=== PATIENT | female | born 1945 | race Caucasian/White ===

== ENCOUNTER 2018-06-16 15:15 | Outpatient (RCR) | payer MEDICARE, OTHER, SELFPAY ==
--- NOTE | 2018-05-04 17:23 | PT.OIE ---
Current Diagnoses Benign paroxysmal vertigo, unspecified ear (05/04/18) Benign paroxysmal vertigo, right ear (05/04/18) Dizziness and giddiness (05/04/18) Provider Visit Care Team Role Provider Type Marizol Deutsch PA-C Attending Provider Physician Primary Care Provider Specialty: Internal Medicine Address: [address] [place] [address], [id number] Email: Physical Therapy Initial Evaluation PT-OP-A Visit Information Start: 05/04/18 16:59 Freq: Status: Active Protocol: Document 05/04/18 12:15 DCW (Rec: 05/04/18 17:23 DCW [id number]) Out-Patient Physical Therapy Visit Information Visit Information Visit Type Initial Evaluation Visit Note Pt arrived 15 minutes late Visit Start Time 12:15 Visit Stop Time 12:45 Total Visit Minutes 30 Visit Number 1 Number of TECHNICAL ASSISTANT Visits 0 Evaluation Information Evaluation Date 05/04/18 PT-OP-B Current Condition Start: 05/04/18 16:59 Freq: Status: Active Protocol: Document 05/04/18 12:15 DCW (Rec: 05/04/18 17:23 DCW [id number]) Current Condition History of Current Condition Onset Date s/p one week Current Complaints Sudden onset of position- dependent vertigo History of Current Condition Pt is a 73 year old female complaining of a one week history of motion-induced vertigo. Pt reports that she came down with a bad head cold two weeks ago, was finally getting over it, and then one week ago, she woke up with the room spinning. This happened each of the next three nights, and then since that time, she has not had bad vertiginous symptoms, however she just has a constant feeling of nausea . Pt notes that she had a similar experience about five years ago, and was seen at [facility] in [place], [place], where she underwent what sounds like a canalith repositioning maneuver, and has not had any issues since that time. Pt reports episodes last a couple of seconds. Pt denies recent hearing changes, tinnitus, diplopia, dysarthria, discoordination, or decreased mentation/ consciousness. Pt reports symptoms are waxing/waning in nature. Pt denies hx of HTN, hyperlipidemia, diabetes, arrhythmia, head trauma, migraines, back/neck problems, CVA, anxiety/panic disorders, depression, or excessive smoking or drinking. Pt did note a history of seizure, however has not had one since 1984. 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 If pt has continued symptoms, changes in her symptoms, or any other indication of something other than BPPV, a new assessment will be performed. Treatment Goals Patient/Caregiver Goals To stop feeling so nauseated. PT-OP-C Subjective Start: 05/04/18 16:59 Freq: Status: Active Protocol: Document 05/04/18 12:15 DCW (Rec: 05/04/18 17:23 DCW [id number]) Patient Questionnaires Dizziness Handicap Inventory DHI Score 8% DHI Functional Impairment 1 to 19% Impaired (Score 1-19) PT-OP-O Vestibular Start: 05/04/18 16:59 Freq: Status: Active Protocol: Document 05/04/18 12:15 DCW (Rec: 05/04/18 17:23 DCW [id number]) Vestibular Assessment Screening Tests Vestibular Artery Screen Negative Sharp-Nelly Test Negative Auditory Tests Gay Test Negative Rinne Test Negative Air Conduction Results Equal Visual Testing Smooth Pursuits Horizontal Negative Smooth Pursuits Vertical Negative Saccades Horizontal Negative Heave Test Negative Thrust Head Negative Positional Testing [place]-Hallpike Positive Right Negative Left Upbeating < 60 Seconds Comments Vestibular Comments Initial round of positional testing was entirely negative. Augustina-Hallpike was then performed a second time with the frenzel lenses, and pt reported a brief episode of vertigo. Therapist was able to see one single beat of what may have been upbeating nystagmus. PT-OP-Q Treatments Start: 05/04/18 16:59 Freq: Status: Active Protocol: Document 05/04/18 12:15 DCW (Rec: 05/04/18 17:23 DCW [id number]) Canalithic Repositioning BPPV Treatment Lisa Affected Canal(s) R Posterior Reps x1 PT-OP-T Assessment and Plan Start: 05/04/18 16:59 Freq: Status: Active Protocol: Document 05/04/18 12:15 DCW (Rec: 05/04/18 17:23 DCW [id number]) Physical Therapy Assessment Rehab Potential Rehabilitation Potential Good Evaluation Complexity Number of Personal Factors/Comorbidities 1-2 Number of Body Systems Impaired 1-2 Clinical Presentation at Evaluation Unstable Impairments Impairments Balance Vestibular Goals Three Impairment Complaint of vertigo with right Augustina-Hallpike Short Term Goal (STG) Pt to have negative augustina- hallpike test bilaterally Two Impairment 8% disability on Dizziness Handicap Inventory Short Term Goal (STG) Pt to score 0% disability on DHI STG Duration 05/18/18 One Impairment Pt experiences vertigo and nausea with position changes Short Term Goal (STG) Pt to report no symptoms of nausea or vertigo over a one week period STG Duration 05/18/18 Assessment Summary Assessment Pt's initial round of positional testing was entirely negative. Plains- Hallpike was then performed a second time with the frenzel lenses, and pt reported a brief episode of vertigo. Therapist was able to see one single beat of what may have been upbeating nystagmus. As this was her only notable symptom, and pt had had a previous occurrence of BPPV which was successfully treated , an Lisa maneuver was performed. Due to time constraints, and the minimal amount of initial symptoms, further positional testing was not performed. Pt did report feeling much better following the maneuver. Pt was educated on BPPV, expectations for treatment, possible recurrence (BPPV has a ~50% recurrence rate in the five years following treatment), and post -Lisa restrictions. Pt to return in ~1 week for a follow -up appointment, and intermittently afterward as indicated for treatment of BPPV. Physical Therapy Plan Frequency and Duration Frequency of Treatment 1x/Week Duration of Treatment 6 weeks Plan of Care Start Date 05/04/18 Plan of Care End Date 06/15/18 Therapeutic Interventions Therapeutic Interventions Balance Training Canalithic Repositioning Manual Therapy Neuromuscular Re-education Vestibular Rehabilitation Next Visit Focus/Plan Next Note Type Treatment Note Next Visit Plan Continued vestibular and positional testing, CRM and vestibular rehabilitation as indicated.
--- NOTE | 2018-05-04 17:25 | PT.OPPOC ---
Current Diagnoses Benign paroxysmal vertigo, unspecified ear (05/04/18) Benign paroxysmal vertigo, right ear (05/04/18) Dizziness and giddiness (05/04/18) Provider Visit Care Team Role Provider Type Marizol Deutsch PA-C Attending Provider Physician Primary Care Provider Specialty: Internal Medicine Address: [address] [place] [address], [id number] Email: Plan Of Care PT-OP-T Assessment and Plan Start: 05/04/18 16:59 Freq: Status: Active Protocol: Document 05/04/18 12:15 DCW (Rec: 05/04/18 17:23 DCW [id number]) Physical Therapy Assessment Rehab Potential Rehabilitation Potential Good Evaluation Complexity Number of Personal Factors/Comorbidities 1-2 Number of Body Systems Impaired 1-2 Clinical Presentation at Evaluation Unstable Impairments Impairments Balance Vestibular Goals Three Impairment Complaint of vertigo with right Brendan-Hallpike Short Term Goal (STG) Pt to have negative brendan- hallpike test bilaterally Two Impairment 8% disability on Dizziness Handicap Inventory Short Term Goal (STG) Pt to score 0% disability on DHI STG Duration 05/18/18 One Impairment Pt experiences vertigo and nausea with position changes Short Term Goal (STG) Pt to report no symptoms of nausea or vertigo over a one week period STG Duration 05/18/18 Assessment Summary Assessment Pt's initial round of positional testing was entirely negative. Brendan- Hallpike was then performed a second time with the Frenzel lenses, and pt reported a brief episode of vertigo. Therapist was able to see one single beat of what may have been upbeating nystagmus. As this was her only notable symptom, and pt had had a previous occurrence of BPPV which was successfully treated , an Lisa maneuver was performed. Due to time constraints, and the minimal amount of initial symptoms, further positional testing was not performed. Pt did report feeling much better following the maneuver. Pt was educated on BPPV, expectations for treatment, possible recurrence (BPPV has a ~50% recurrence rate in the five years following treatment), and post -Lisa restrictions. Pt to return in ~1 week for a follow -up appointment, and intermittently afterward as indicated for treatment of BPPV. Physical Therapy Plan Frequency and Duration Frequency of Treatment 1x/Week Duration of Treatment 6 weeks Plan of Care Start Date 05/04/18 Plan of Care End Date 06/15/18 Therapeutic Interventions Therapeutic Interventions Balance Training Canalithic Repositioning Manual Therapy Neuromuscular Re-education Vestibular Rehabilitation Next Visit Focus/Plan Next Note Type Treatment Note Next Visit Plan Continued vestibular and positional testing, CRM and vestibular rehabilitation as indicated. Plan of Care Dates Plan of Care Start Date 05/04/18 Plan of Care End Date 06/15/18 Please Sign and Return: I have reviewed this Plan of Care and certify that the skilled therapy services above are required to meet the patient?s needs. Physician Signature Date Printed Name and Credentials Clinical Instructor Signature Printed Name and Credentials
--- NOTE | 2018-06-16 15:50 | PT.OTN ---
Current Diagnoses Benign paroxysmal vertigo, right ear (06/16/18) Physical Therapy Treatment Note PT-OP-A Visit Information Start: 05/04/18 16:59 Freq: Status: Active Protocol: Document 06/16/18 15:15 DCW (Rec: 06/16/18 15:50 DCW [id number]) Out-Patient Physical Therapy Visit Information Visit Information Visit Type Progress Note Visit Start Time 15:15 Visit Stop Time 15:42 Total Visit Minutes 27 Visit Number 2 Number of JIG BORING MACHINE OPERATOR FOR METAL Visits 0 Evaluation Information Evaluation Date 05/04/18 PT-OP-B Current Condition Start: 05/04/18 16:59 Freq: Status: Active Protocol: Document 05/04/18 12:15 DCW (Rec: 05/04/18 17:23 DCW [id number]) Current Condition History of Current Condition Onset Date s/p one week Current Complaints Sudden onset of position- dependent vertigo History of Current Condition Pt is a 73 year old female complaining of a one week history of motion-induced vertigo. Pt reports that she came down with a bad head cold two weeks ago, was finally getting over it, and then one week ago, she woke up with the room spinning. This happened each of the next three nights, and then since that time, she has not had bad vertiginous symptoms, however she just has a constant feeling of nausea . Pt notes that she had a similar experience about five years ago, and was seen at [facility] in [place], where she underwent what sounds like a canalith repositioning maneuver, and has not had any issues since that time. Pt reports episodes last a couple of seconds. Pt denies recent hearing changes, tinnitus, diplopia, dysarthria, discoordination, or decreased mentation/ consciousness. Pt reports symptoms are waxing/waning in nature. Pt denies hx of HTN, hyperlipidemia, diabetes, arrhythmia, head trauma, migraines, back/neck problems, CVA, anxiety/panic disorders, depression, or excessive smoking or drinking. Pt did note a history of seizure, however has not had one since 1984. 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 If pt has continued symptoms, changes in her symptoms, or any other indication of something other than BPPV, a new assessment will be performed. Treatment Goals Patient/Caregiver Goals To stop feeling so nauseated. PT-OP-C Subjective Start: 05/04/18 16:59 Freq: Status: Active Protocol: Document 06/16/18 15:15 DCW (Rec: 06/16/18 15:50 DCW [id number]) OP-PT Subjective Patient Comments Patient Comments Pt reports that she felt great immediately upon completion of her previous Lisa maneuver on 05/04/18, however she began to have symptoms again 4 days ago. Pt notes they are not nearly as bad as they used to be, but she also doesn't want to stop doing the things I like to do because I get dizzy . She is also planning a vacation next month, and she is worried that her dizziness will impact her enjoyment. PT-OP-O Vestibular Start: 05/04/18 16:59 Freq: Status: Active Protocol: Document 06/16/18 15:15 DCW (Rec: 06/16/18 15:50 DCW [id number]) Vestibular Assessment Positional Testing [place]-Hallpike Negative Left Negative Right PT-OP-Q Treatments Start: 05/04/18 16:59 Freq: Status: Active Protocol: Document 06/16/18 15:15 DCW (Rec: 06/16/18 15:50 DCW [id number]) Canalithic Repositioning BPPV Treatment Lisa Affected Canal(s) R Posterior Reps x1 PT-OP-T Assessment and Plan Start: 05/04/18 16:59 Freq: Status: Active Protocol: Document 06/16/18 15:15 DCW (Rec: 06/16/18 15:50 DCW [id number]) Physical Therapy Assessment Impairments Impairments Balance Vestibular Goals Three Impairment Complaint of vertigo with right Brendan-Hallpike Short Term Goal (STG) Pt to have negative brendan- hallpike test bilaterally STG Duration 07/16/18 Two Impairment 8% disability on Dizziness Handicap Inventory Short Term Goal (STG) Pt to score 0% disability on DHI STG Duration 07/16/18 One Impairment Pt experiences vertigo and nausea with position changes Short Term Goal (STG) Pt to report no symptoms of nausea or vertigo over a one week period STG Duration 07/16/18 Assessment Summary Assessment Pt's positional testing was negative, however her last assessment was also largely negative with very minimal response to positional testing . Due to pt reporting similar symptoms, a right-sided Lisa was again performed. Pt was again educated on BPPV, expectations for treatment, possible recurrence (BPPV has a ~50% recurrence rate in the five years following treatment ), and post-Lisa restrictions . Pt instructed to return as necessary for continued treatment of BPPV Physical Therapy Plan Frequency and Duration Frequency of Treatment 1x/Week Duration of Treatment 6 weeks Plan of Care Start Date 06/16/18 Plan of Care End Date 07/28/18 Therapeutic Interventions Therapeutic Interventions Balance Training Canalithic Repositioning Manual Therapy Neuromuscular Re-education Vestibular Rehabilitation Next Visit Focus/Plan Next Note Type Treatment Note Next Visit Plan Continued vestibular and positional testing, CRM and vestibular rehabilitation as indicated.
--- NOTE | 2018-06-16 15:51 | PT.OPPOC ---
Current Diagnoses Benign paroxysmal vertigo, right ear (06/16/18) Provider Visit Care Team Role Provider Type Marizol Deutsch PA-C Attending Provider Physician Primary Care Provider Specialty: Internal Medicine Address: [address] [place] [address], [id number] Email: Plan Of Care PT-OP-T Assessment and Plan Start: 05/04/18 16:59 Freq: Status: Active Protocol: Document 06/16/18 15:15 DCW (Rec: 06/16/18 15:50 DCW [id number]) Physical Therapy Assessment Impairments Impairments Balance Vestibular Goals Three Impairment Complaint of vertigo with right Brendan-Hallpike Short Term Goal (STG) Pt to have negative brendan- hallpike test bilaterally STG Duration 07/16/18 Two Impairment 8% disability on Dizziness Handicap Inventory Short Term Goal (STG) Pt to score 0% disability on DHI STG Duration 07/16/18 One Impairment Pt experiences vertigo and nausea with position changes Short Term Goal (STG) Pt to report no symptoms of nausea or vertigo over a one week period STG Duration 07/16/18 Assessment Summary Assessment Pt's positional testing was negative, however her last assessment was also largely negative with very minimal response to positional testing . Due to pt reporting similar symptoms, a right-sided Lisa was again performed. Pt was again educated on BPPV, expectations for treatment, possible recurrence (BPPV has a ~50% recurrence rate in the five years following treatment ), and post-Lisa restrictions . Pt instructed to return as necessary for continued treatment of BPPV Physical Therapy Plan Frequency and Duration Frequency of Treatment 1x/Week Duration of Treatment 6 weeks Plan of Care Start Date 06/16/18 Plan of Care End Date 07/28/18 Therapeutic Interventions Therapeutic Interventions Balance Training Canalithic Repositioning Manual Therapy Neuromuscular Re-education Vestibular Rehabilitation Next Visit Focus/Plan Next Note Type Treatment Note Next Visit Plan Continued vestibular and positional testing, CRM and vestibular rehabilitation as indicated. Plan of Care Dates Plan of Care Start Date 06/16/18 Plan of Care End Date 07/28/18 Please Sign and Return: I have reviewed this Plan of Care and certify that the skilled therapy services above are required to meet the patient?s needs. Physician Signature Date Printed Name and Credentials Clinical Instructor Signature Printed Name and Credentials
--- NOTE | 2018-09-05 11:34 | PT.OPDS ---
Current Diagnoses Benign paroxysmal vertigo, right ear (06/16/18) Provider Visit Care Team Role Provider Type Marizol Deutsch PA-C Attending Provider Physician Primary Care Provider Specialty: Internal Medicine Address: [address] [place] [address], [id number] Email: Visit Number Visit Number 2 Discharge Summary PT-OP-B Current Condition Start: 05/04/18 16:59 Freq: Status: Active Protocol: Document 05/04/18 12:15 DCW (Rec: 05/04/18 17:23 DCW [id number]) Current Condition History of Current Condition Onset Date s/p one week Current Complaints Sudden onset of position- dependent vertigo History of Current Condition Pt is a 73 year old female complaining of a one week history of motion-induced vertigo. Pt reports that she came down with a bad head cold two weeks ago, was finally getting over it, and then one week ago, she woke up with the room spinning. This happened each of the next three nights, and then since that time, she has not had bad vertiginous symptoms, however she just has a constant feeling of nausea . Pt notes that she had a similar experience about five years ago, and was seen at [facility] in [place], where she underwent what sounds like a canalith repositioning maneuver, and has not had any issues since that time. Pt reports episodes last a couple of seconds. Pt denies recent hearing changes, tinnitus, diplopia, dysarthria, discoordination, or decreased mentation/ consciousness. Pt reports symptoms are waxing/waning in nature. Pt denies hx of HTN, hyperlipidemia, diabetes, arrhythmia, head trauma, migraines, back/neck problems, CVA, anxiety/panic disorders, depression, or excessive smoking or drinking. Pt did note a history of seizure, however has not had one since 1984. 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 If pt has continued symptoms, changes in her symptoms, or any other indication of something other than BPPV, a new assessment will be performed. Treatment Goals Patient/Caregiver Goals To stop feeling so nauseated. PT-OP-C Subjective Start: 05/04/18 16:59 Freq: Status: Active Protocol: Document 06/16/18 15:15 DCW (Rec: 06/16/18 15:50 DCW [id number]) OP-PT Subjective Patient Comments Patient Comments Pt reports that she felt great immediately upon completion of her previous Lisa maneuver on 05/04/18, however she began to have symptoms again 4 days ago. Pt notes they are not nearly as bad as they used to be, but she also doesn't want to stop doing the things I like to do because I get dizzy . She is also planning a vacation next month, and she is worried that her dizziness will impact her enjoyment. PT-OP-O Vestibular Start: 05/04/18 16:59 Freq: Status: Active Protocol: Document 06/16/18 15:15 DCW (Rec: 06/16/18 15:50 DCW [id number]) Vestibular Assessment Positional Testing [place]-Hallpike Negative Left Negative Right PT-OP-T Assessment and Plan Start: 05/04/18 16:59 Freq: Status: Active Protocol: Document 09/05/18 11:32 DCW (Rec: 09/05/18 11:34 DCW [id number]) Physical Therapy Assessment Impairments Impairments Balance Vestibular Goals Three Impairment Complaint of vertigo with right Brendan-Hallpike Short Term Goal (STG) Pt to have negative brendan- hallpike test bilaterally STG Duration 07/16/18 Two Impairment 8% disability on Dizziness Handicap Inventory Short Term Goal (STG) Pt to score 0% disability on DHI STG Duration 07/16/18 One Impairment Pt experiences vertigo and nausea with position changes Short Term Goal (STG) Pt to report no symptoms of nausea or vertigo over a one week period STG Duration 07/16/18 Assessment Summary Assessment Pt was phoned on 07/22/18 and a message was left with her regarding her current level of function and need to return to skilled therapy for vestibular treatment. No further contact has been made, and pt has now not been seen in more than two months. Pt will be discharged from skilled therapy at this time. Physical Therapy Plan Frequency and Duration Frequency of Treatment 1x/Week Duration of Treatment 6 weeks Plan of Care Start Date 06/16/18 Plan of Care End Date 07/28/18 Therapeutic Interventions Therapeutic Interventions Balance Training Canalithic Repositioning Manual Therapy Neuromuscular Re-education Vestibular Rehabilitation Next Visit Focus/Plan Next Note Type Treatment Note Next Visit Plan Continued vestibular and positional testing, CRM and vestibular rehabilitation as indicated.
== END 2018-09-06 13:13 ==
LOC: PHYS 15:15
PROVIDERS: PCP Physician Assistant; Visit Provider Physician Assistant
DX: H81.11 Benign paroxysmal vertigo, right ear (principal)
CPT/HCPCS: 95992; 97140; 97161

== ENCOUNTER → 2018-11-22 09:59 | Outpatient (CLI) | payer MEDICARE, OTHER, SELFPAY ==
--- NOTE | 2018-11-22 | DI.US.S_ITS ---
PROCEDURE: US PERIPH VENOUS LOW EXTREM LT INDICATIONS: R/O DVT, LEFT ANKLE PAIN TECHNIQUE: Real-time imaging, as well as color and pulse Doppler interrogation, were performed of the lower extremity deep veins from the inguinal ligament to the popliteal fossa. COMPARISON: None. FINDINGS: The common femoral, femoral and popliteal veins are normally compressible, and free of intraluminal thrombus. Color and pulse Doppler demonstrate normal phasic intraluminal flow. There is normal augmentation response to distal compression maneuver. Edema within the left lower leg medially. IMPRESSION: 1. No deep venous thrombosis identified within the left lower extremity. Dictated by: Car EMERY Interpreted: Sybil Woodruff MD on 11/22/2018 at 13:02 Approved by: Sybil Woodruff M.D. on 11/22/2018 at 13:22
--- NOTE | 2018-11-22 | DI.RAD.S_ITS ---
PROCEDURE: XR FOOT LT MIN 3V INDICATIONS: possible dvt left ankle TECHNIQUE: 3 views of the foot were acquired. COMPARISON: [facility], CR, XR ANKLE LT MIN 3V, 11/22/2018, 10:08. FINDINGS: Bones: No fractures or dislocations. No suspicious bony lesions. Hammertoe deformity of the second and third digits. Soft tissues: No tibiotalar joint effusion. Achilles tendon appears normal. IMPRESSION: 1. No fracture or dislocation. 2. Hammertoe deformity of the second and third digits. Dictated by: Kera Huston M.D. on 11/22/2018 at 18:16 Approved by: Kera Huston M.D. on 11/22/2018 at 18:56
--- NOTE | 2018-11-22 | DI.RAD.S_ITS ---
PROCEDURE: XR ANKLE LT MIN 3V INDICATIONS: possible dvt left ankle TECHNIQUE: 3 views of the ankle were acquired. COMPARISON: [facility], CR, XR FOOT LT MIN 3V, 11/22/2018, 10:08. FINDINGS: Bones: No fractures or dislocations. Ankle mortise is normally aligned. No suspicious bony lesions. There is moderate ventricular configuration. Soft tissues: No tibiotalar joint effusion. Achilles tendon appears normal. Benign-appearing soft tissue calcifications are noted. Soft tissue swelling. IMPRESSION: No fracture or dislocation. 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 Dictated by: Kera Huston M.D. on 11/22/2018 at 18:19 Approved by: Kera Huston M.D. on 11/22/2018 at 18:20
== END ==
PROVIDERS: PCP Internal Medicine; Visit Provider Internal Medicine
DX: M25.572 Pain in left ankle and joints of left foot (principal); M25.472 Effusion, left ankle; M19.072 Primary osteoarthritis, left ankle and foot; M20.42 Other hammer toe(s) (acquired), left foot
CPT/HCPCS: 73610; 73630; 93971

== ENCOUNTER 2018-12-21 08:27 | Day surgery (SDC) | payer MEDICARE, OTHER, SELFPAY ==
--- NOTE | 2018-12-20 18:59 | PM.PREOP ---
Pre-operative Note Interval Note History & Physical reviewed/Exam performed by Physician: Yes Changes to H&P: No
--- NOTE | 2018-12-20 19:00 | PM.OP.1 ---
Operative Date/Time/Diagnoses Date of procedure: 12/21/18 Time of procedure: 09:45 Procedure & Clinicians Procedure: Preoperative diagnoses: 1. Left advanced nuclear sclerotic cataract 2. Astigmatism which is to be corrected with a toric intraocular lens implant. She desires a myopic target. 3. Epilepsy. Postoperative diagnoses: 1. Cataract removal with phacoemulsification with toric posterior chamber intraocular lens implant placed. Procedure: Phacoemulsification with posterior chamber toric intraocular lens implant. Surgeon: Trice Campos MD Complications: None Specimen: None Implant: [id number] [place] 096 Blood loss: None Anesthesia: Retrobulbar with monitored standby Description of procedure: Patient presents with a complaint of decreased vision due to cataract which is affecting activities of daily living. 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 The patient wants surgery to improve vision and astigmatism. She chooses a myopic target. The patient was taken to the operating room and proparacaine drops placed. Indelible ink spear were placed at the 90 and 180 degree meridian. The patient was placed on the operating room table and given IV sedation. A retrobulbar block insert consisting of 6 cc of 2% xylocaine without epinephrine mixed half and half with 0.5% Marcaine with 1 cc of hyaluronidase added is placed between the medial and lateral 1/3 of the inferior orbital rim. The eye is manually massaged for 30 sec, prepped using Betadine solution, and draped in the usual sterile fashion. Temporal approach was made, a 1 mm side-port incision was made 90? from the proposed corneal wound. Phenylephrine 1.5% mixed with 1% xylocaine 0.2 cc was placed into the anterior chamber. Viscoat followed by Rocael was then placed. A 2.6 mm clear incision with a 2.6 mm blade was placed at the 170 degree meridian. A 360 degree capsulorrhexis style capsulotomy was then performed with a cystitome needle on a Healon. Hydrodelineation and hydrodissection were performed. The phacoemulsification unit is introduced, and sculpting used to groove the central lens. It is then removed in chopping mode. Epi nucleus is removed with epinuclear mode and irrigation aspiration was used to remove the peripheral cortex. The posterior capsule is polished. The intraocular lens is selected, inspected, power confirmed, and placed in the posterior chamber at the desired meridian of 96?. The pupil was not constricted. The wound was stromally hydrated and tested for leaks, there was none and it was left sutureless. Vigamox 0.1 cc was placed into the anterior chamber. Kenalog 0.2 cc was placed in the superior subconjunctival space. A drop of antibiotic and was placed and the eye was patched and shielded. The patient was stable and returned to the recovery room in excellent condition. Dictated by: Trice Campos MD Copy to: [facility]
[2018-12-21] MEDS: PROPARACAINE 0.5% OPHTH SOL 2 DROPS EYE-OP (09:18)
[2018-12-21] MEDS: CATARACT EYE COMPOUND (10 DROPS/SYRINGE) 3 DROPS EYE-OP (09:22)
[2018-12-21 09:29] VITALS: BP 103/52; PULSE 58; RESP 15; TEMP 36.3; O2SAT 97; BMI 25.1
--- NOTE | 2018-12-21 10:19 | SUR.OPER ---
Supine on eye stretcher, head on extension cradle secured with tape. Arms tucked at sides with blanket. Pillow under knees.
[2018-12-21] MEDS: PHENYLEPHRINE/LIDOCAINE VIAL (OR) 0.2 ML EYE-OP (10:21)
[2018-12-21] MEDS: LIDOCAINE 2% 4 ML, BUPIVACAINE 0.5% (PF) 4 ML, HYALURONIDASE 150 UNIT INJ (10:22)
[2018-12-21] MEDS: TRIAMCINOLONE 50 MG/5 ML VIAL INJ (10:23)
[2018-12-21] MEDS: MOXIFLOXACIN INJ 5 MG/ML VIAL EYE-OP (10:23)
[2018-12-21] MEDS: HYALURONATE SODIUM 10 MG/ML SYRINGE INJ (10:24)
[2018-12-21] MEDS: CHONDROIDTIN/SOD HYALURONATE 1.05 ML SYRINGE INTRAOCULA (10:24)
[2018-12-21] MEDS: BALANCED SALT IRRIG SOLN NO.2 500 ML, EPINEPHrine 1 MG IRR (10:25)
[2018-12-21] MEDS: ERYTHROMYCIN OPHTH 1 GM OINT 1 APPLIC EYE-LEFT (10:26)
[2018-12-21 10:53] VITALS: BP 108/60; PULSE 61; RESP 12; TEMP 36.3; O2SAT 100
[2018-12-21 11:34] VITALS: BP 101/56; PULSE 57; RESP 16; TEMP 36.3; O2SAT 100
--- NOTE | 2018-12-21 12:53 | SUR.PHASEII ---
1100 Pt c/o feeling drowsy, call light provided. Spouse at bedside. PO intake provided. Pt c/o pain at IV site, IV removed per pt request. Pt c/o feeling cold, warm blankets provided. Discharge instructions reviewed with patient and spouse.
== END 2018-12-21 11:48 | disposition home or self-care (01) ==
LOC: OR 08:30
PROVIDERS: Family Provider Internal Medicine; PCP Internal Medicine; Visit Provider Ophthalmology
PROC: (CPT 66984; principal; 2018-12-21 09:45)
DX: H25.12 Age-related nuclear cataract, left eye (principal); H52.202 Unspecified astigmatism, left eye; G40.909 Epilepsy, unspecified, not intractable, without status epilepticus
CPT/HCPCS: 66984; J0171; J2704; J3301; J3470; V2787

== ENCOUNTER 2019-01-04 08:09 | Day surgery (SDC) | payer MEDICARE, OTHER, SELFPAY ==
--- NOTE | 2018-12-31 12:08 | PM.PREOP ---
Pre-operative Note Interval Note History & Physical reviewed/Exam performed by Physician: Yes Changes to H&P: No
--- NOTE | 2018-12-31 12:09 | P.OP_ITS ---
Operative Date/Time/Diagnoses Date of procedure: 01/04/19 Time of procedure: 08:45 Procedure & Clinicians Procedure: Preoperative diagnoses: 1. Right significant nuclear sclerotic and cortical cataract. 2. Epilepsy. 3. Positional vertigo. 4. Anxiety. Postoperative diagnoses: 1. Cataract removed by phacoemulsification with placement of posterior chamber intraocular lens. Procedure: Phacoemulsification with posterior chamber intraocular lens implant Surgeon: Trice Campos MD Complications: None Specimen: None Implant: [id number] Blood loss: None Anesthesia: Retrobulbar with monitored standby Description of procedure: Patient presents with a complaint of decreased vision due to cataract which is affecting activities of daily living. 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 The patient wants surgery to improve vision. She desires a near target of -1.65. She has positional vertigo and bed position movements are perform slower for her than usual for her comfort. The patient was taken to the operating room and given IV sedation. A retrobulbar block consisting of 6 cc of 2% xylocaine without epinephrine mixed half and half with 0.5% Marcaine with 1 cc of hyaluronidase added is placed between the medial and lateral 1/3 of the inferior orbital rim. The eye is manually massaged for 30 sec, prepped using Betadine solution, and draped in the usual sterile fashion. Temporal approach was made, a 1 mm side-port incision was made 90? from the proposed clear corneal incision position. Phenylephrine 1.5% mixed with 1% xylocaine 0.2 cc was placed into the anterior chamber. Viscoat followed by Rocael was then placed. A 2.6 mm clear incision with a 2.6 mm blade was placed. A 360 degree capsulorrhexis style capsulotomy was then performed with a cystitome needle on a Healon. Hydrodelineation and hydrodissection were performed. The phacoemulsification unit is introduced, and sculpting notice used to groove the central lens. It is then removed in chopping mode. Epi nucleus is removed with epinuclear mode and irrigation aspiration was used to remove the peripheral cortex. The posterior capsule is polished. The intraocular lens is selected, inspected, power confirmed, and placed in the posterior chamber. The wound was stromally hydrated and tested for leaks, there was none and it was left sutureless. Vigamox 0.1 cc was placed into the anterior chamber. Kenalog 0.2 cc was placed in the superior subconjunctival space. A drop of antibiotic and was placed and the eye was patched and shielded. The patient was stable and returned to the recovery room in excellent condition. Dictated by: Trice Campos MD Copy to: [facility]
[2019-01-04] MEDS: PROPARACAINE 0.5% OPHTH SOL 2 DROPS EYE-OP (08:19)
[2019-01-04] MEDS: CATARACT EYE COMPOUND (10 DROPS/SYRINGE) 3 DROPS EYE-OP (08:22)
[2019-01-04 08:23] VITALS: BP 101/62; PULSE 63; RESP 18; TEMP 36.3; O2SAT 100
[2019-01-04 08:29] VITALS: BMI 25.2
[2019-01-04] MEDS: HYALURONATE SODIUM 10 MG/ML SYRINGE INJ (09:06)
[2019-01-04] MEDS: ERYTHROMYCIN OPHTH 1 GM OINT 1 APPLIC EYE-RIGHT (09:06)
[2019-01-04] MEDS: MOXIFLOXACIN INJ 5 MG/ML VIAL EYE-OP (09:07)
[2019-01-04] MEDS: PHENYLEPHRINE/LIDOCAINE VIAL (OR) 0.2 ML EYE-OP (09:08)
[2019-01-04] MEDS: TRIAMCINOLONE 50 MG/5 ML VIAL INJ (09:09)
[2019-01-04] MEDS: LIDOCAINE 2% 4 ML, BUPIVACAINE 0.5% (PF) 4 ML, HYALURONIDASE 150 UNIT INJ (09:10)
[2019-01-04] MEDS: LIDOCAINE 1% W/EPI 20 ML INJ (09:13)
[2019-01-04] MEDS: BALANCED SALT IRRIG SOLN NO.2 500 ML, EPINEPHrine 1 MG IRR (09:15)
[2019-01-04 09:54] VITALS: BP 106/64; PULSE 60; RESP 16; TEMP 36.4; O2SAT 95
--- NOTE | 2019-01-04 10:18 | SUR.PREOP ---
Late entry: Pt ready to go soon after surgery, but wanting to stay and eat the rice she brought from home. Pt left when ready and left in stable condition.
== END 2019-01-04 10:06 | disposition home or self-care (01) ==
LOC: OR 08:10
PROVIDERS: Family Provider Internal Medicine; PCP Internal Medicine; Visit Provider Ophthalmology
PROC: (CPT 66984; principal; 2019-01-04 08:45)
DX: H25.811 Combined forms of age-related cataract, right eye (principal); G40.909 Epilepsy, unspecified, not intractable, without status epilepticus; F41.9 Anxiety disorder, unspecified
CPT/HCPCS: 66984; J0171; J2250; J2704; J3010; J3301; J3470

== ENCOUNTER → 2019-05-08 16:00 | Outpatient (CLI) | payer MEDICARE, OTHER, SELFPAY ==
--- NOTE | 2019-05-08 | DI.RAD.S_ITS ---
PROCEDURE: XR CHEST 2V INDICATIONS: Lung Field abnormal Finding TECHNIQUE: 2 views of the chest were acquired. COMPARISON: None. FINDINGS: Surgical changes and devices: None. Lungs and pleura: Lungs are clear. No pleural effusions or pneumothorax. Mediastinum: Mediastinal contours are normal. Heart size is normal. Bones and chest wall: No suspicious bony abnormalities. There is scoliosis Soft tissues appear unremarkable. IMPRESSION: No acute disease Dictated by: Marvin Barnes M.D. on 05/08/2019 at 17:22 Approved by: Marvin Barnes M.D. on 05/08/2019 at 17:23
== END ==
PROVIDERS: Family Provider Internal Medicine; PCP Internal Medicine; Referring Provider Internal Medicine; Visit Provider Internal Medicine
DX: R91.8 Other nonspecific abnormal finding of lung field (principal)
CPT/HCPCS: 71046

== ENCOUNTER → 2019-05-09 12:47 | Outpatient (CLI) | payer MEDICARE, OTHER, SELFPAY ==
[2019-05-09 13:59] LABS: Add Manual Diff / Slide Review NO; Basophils Absolute Auto 0 /uL (0-100); Basophils Percent Auto 0.6 % (0-2); Eosinophils Absolute Auto 100 /uL (0-450); Eosinophils Percent Auto 1.8 % (2-4); Hemoglobin 13.2 g/dL (12.0-16.0); Lymphocytes Absolute Auto 1700 /uL (1100-4500); Lymphocytes Percent Auto 24.3 % (25-40); Mean Corpuscular HGB Conc 33.8 % (30-36); Mean Corpuscular Volume 97.4 fL (80-100); Monocytes Absolute Auto 500 /uL (0-900); Monocytes Percent Auto 7.7 % (3-14); Neutrophils Absolute Auto 4600 /uL (1500-7000); Neutrophils Percent Auto 65.6 % (50-75); Platelet Count 251 X10^3/uL (150-400); Red Cell Distribution Width 12.8 % (11.6-14.8); White Blood Cell Count 6.9 X10^3/uL (4.5-11.0)
[2019-05-09 14:15] LABS: Alanine Aminotransferase 17 IU/L (<35); Albumin 4.2 g/dL (3.5-5.0); Albumin Globulin Ratio 1.3 (1.0-2.8); Alkaline Phosphatase 103 U/L (38-126); Amylase 101 U/L (30-110); Aspartate Aminotransferase 26 IU/L (14-36); BUN Creatinine Ratio 26.6 (6-22); Bilirubin Total 0.2 mg/dL (0.2-1.3); Blood Urea Nitrogen 21 mg/dL (7-17); Calcium 9.4 mg/dL (8.4-10.2); Carbon Dioxide 28 mmol/L (22-32); Chloride 104 mmol/L (98-107); Estimated Glomerular Filt Rate > 60.0 mL/min (>60); Globulin 3.2 g/dL (1.7-4.1); Glucose 83 mg/dL (80-110); HEMOLYSIS < 15 (0-50); Lipase 104 U/L (23-300); Potassium 4.9 mmol/L (3.4-5.1); Sodium 136 mmol/L (137-145); Total Protein 7.4 g/dL (6.3-8.2)
[2019-05-09 14:20] LABS: Erythrocyte Sedimentation Rate 18 MM/HR (0-20)
[2019-05-09 15:07] LABS: TSH w/ Reflex to FT4 2.59 uIU/mL (0.47-4.68)
[2019-05-11 14:47] LABS: Tissue Transglutaminase IgA <2 U/mL (0-3); Tissue Transglutaminase IgG 3 U/mL (0-5)
[2019-05-11 17:22] LABS: Fats, Neutral Normal (.); Fats, Total Increased (.)
== END ==
PROVIDERS: Family Provider Internal Medicine; PCP Internal Medicine; Referring Provider Internal Medicine; Visit Provider Internal Medicine
DX: R19.7 Diarrhea, unspecified (principal)
CPT/HCPCS: 36415; 80053; 82150; 82705; 83516; 83690; 84443; 85025; 85651; 87045; 87177; 87205; 87899

== ENCOUNTER → 2019-05-11 12:27 | Outpatient (CLI) | payer MEDICARE, OTHER, SELFPAY ==
[2019-05-11 14:02] LABS: Occult Blood 1 Negative (Negative)
[2019-05-11 14:03] LABS: Occult Blood 2 Negative (Negative); Occult Blood 3 Negative (Negative)
== END ==
PROVIDERS: Family Provider Internal Medicine; PCP Internal Medicine; Referring Provider Internal Medicine; Visit Provider Internal Medicine
DX: R19.7 Diarrhea, unspecified (principal)
CPT/HCPCS: 82270

== ENCOUNTER → 2019-07-26 12:47 | Outpatient (CLI) | payer MEDICARE, OTHER, SELFPAY ==
[2019-07-26 15:03] LABS: Occult Blood 1 Negative (Negative)
[2019-07-26 15:04] LABS: Occult Blood 2 Negative (Negative); Occult Blood 3 Negative (Negative)
[2019-07-27 11:03] LABS: Fats, Neutral Normal (.)
[2019-08-07 10:11] LABS: Fats, Total INCREASED
== END ==
PROVIDERS: Family Provider Internal Medicine; PCP Internal Medicine; Referring Provider Internal Medicine; Visit Provider Internal Medicine
DX: R19.7 Diarrhea, unspecified (principal)
CPT/HCPCS: 82270; 82705; 82710

== ENCOUNTER → 2019-08-21 09:56 | Outpatient (CLI) | payer MEDICARE, OTHER, SELFPAY ==
--- NOTE | 2019-08-21 | DI.CT.S_ITS ---
PROCEDURE: CT ABDOMEN W CON INDICATIONS: Diarrhea, unspecified TECHNIQUE: After the administration of intravenous contrast, 5 mm thick sections acquired from the diaphragm to the iliac crests. 5 mm coronal and sagittal reformats were performed. For radiation dose reduction, the following was used: automated exposure control, adjustment of mA and/or kV according to patient size. COMPARISON: None. FINDINGS: Image quality: Excellent. Lung bases: 6 mm left basilar pulmonary nodule is technically indeterminate in the absence of relevant prior studies. Heart size is normal. Solid organs: Hepatic steatosis. Subcentimeter hepatic hypodensities are probably small cysts or hemangiomas, although technically too small to characterize accurately. Gallbladder negative. Biliary system is non dilated. Pancreas enhances normally. Spleen is normal in size and enhancement. No adrenal nodules. Kidneys demonstrate normal size and enhancement, without hydronephrosis. Bilateral simple appearing renal cysts. Peritoneum and bowel: Bowel loops demonstrate normal wall thickness and caliber. Large amount of stools present. The appendix is not visualized. Small hiatal hernia. No free fluid or air. Nodes and vessels: No retroperitoneal or mesenteric adenopathy by size criteria. Aorta and inferior vena cava are normal in size. Miscellaneous: No ventral hernias. IMPRESSION: No acute process identified 6 mm left lower lobe pulmonary nodule technically indeterminate. Recommend followup with CT chest in 6 months to exclude early malignancy/metastatic disease, given the absence of relevant prior comparison studies. Large amount of stool Hepatic steatosis Additional chronic and incidental findings as above. Dictated by: Marvin Barnes M.D. on 08/21/2019 at 13:35 Approved by: Marvin Barnes M.D. on 08/21/2019 at 13:51
[2019-08-21 10:46] LABS: Add Manual Diff / Slide Review NO; Basophils Absolute Auto 0 /uL (0-100); Basophils Percent Auto 0.3 % (0-2); Eosinophils Absolute Auto 100 /uL (0-450); Eosinophils Percent Auto 2.6 % (2-4); Hematocrit 39.4 % (36-46); Hemoglobin 13.5 g/dL (12.0-16.0); Lymphocytes Absolute Auto 1500 /uL (1100-4500); Lymphocytes Percent Auto 28.5 % (25-40); Mean Corpuscular HGB Conc 34.1 % (30-36); Mean Corpuscular Hemoglobin 33.5 PG (26-34); Mean Corpuscular Volume 98.1 fL (80-100); Monocytes Absolute Auto 400 /uL (0-900); Neutrophils Absolute Auto 3300 /uL (1500-7000); Neutrophils Percent Auto 61.6 % (50-75); Platelet Count 224 X10^3/uL (150-400); Red Blood Cell Count 4.02 X10^6/uL (4.0-5.2); Red Cell Distribution Width 12.9 % (11.6-14.8); White Blood Cell Count 5.3 X10^3/uL (4.5-11.0)
[2019-08-21 10:52] LABS: INR 1.1 (0.9-1.3); Prothrombin Time 12.5 SECONDS (10.1-12.7)
[2019-08-21 10:55] LABS: PTT Partial Thromboplastin Tim 33 SECONDS (26.4-36.2)
[2019-08-21 11:01] LABS: BUN Creatinine Ratio 34.2 (6-22); Blood Urea Nitrogen 25 mg/dL (7-17); Estimated Glomerular Filt Rate > 60.0 mL/min (>60)
[2019-08-21 11:04] LABS: HEMOLYSIS < 15 (0-50); Iron 113 ug/dL (37-170)
[2019-08-21 11:05] LABS: Alanine Aminotransferase 18 IU/L (<35); Albumin 4.3 g/dL (3.5-5.0); Albumin Globulin Ratio 1.6 (1.0-2.8); Alkaline Phosphatase 102 U/L (38-126); Aspartate Aminotransferase 30 IU/L (14-36); BUN Creatinine Ratio 32.9 (6-22); Bilirubin Total 0.4 mg/dL (0.2-1.3); Blood Urea Nitrogen 25 mg/dL (7-17); Calcium 9.6 mg/dL (8.4-10.2); Carbon Dioxide 27 mmol/L (22-32); Chloride 107 mmol/L (98-107); Estimated Glomerular Filt Rate > 60.0 mL/min (>60); Globulin 2.7 g/dL (1.7-4.1); Glucose 89 mg/dL (80-110); HEMOLYSIS < 15 (0-50); Potassium 5.2 mmol/L (3.4-5.1); Sodium 139 mmol/L (137-145)
[2019-08-21 11:14] LABS: Percent Iron Saturation 42 % (15-50); Total Iron Binding Capacity 269 ug/dL (265-497); Transferrin 219 mg/dL (206-381)
[2019-08-21 11:28] LABS: Vitamin D 25 Hydroxy (D3) 50.8 ng/mL (30.0-100.0)
[2019-08-21 12:14] LABS: Folate 10.9 ng/mL (2.76-20.0); Vitamin B12 863 pg/mL (239-931)
== END ==
PROVIDERS: Family Provider Internal Medicine; PCP Internal Medicine; Referring Provider Physician Assistant; Visit Provider Physician Assistant
DX: Z01.812 Encounter for preprocedural laboratory examination (principal); R19.7 Diarrhea, unspecified; R91.1 Solitary pulmonary nodule; K76.0 Fatty (change of) liver, not elsewhere classified; N28.1 Cyst of kidney, acquired; K44.9 Diaphragmatic hernia without obstruction or gangrene; K90.9 Intestinal malabsorption, unspecified
CPT/HCPCS: 36415; 74160; 80053; 82306; 82565; 82607; 82746; 83540; 83550; 84520; 85025; 85610; 85730; Q9967

== ENCOUNTER → 2019-08-30 09:35 | Outpatient (CLI) | payer MEDICARE, OTHER, SELFPAY ==
[2019-09-08 13:47] LABS: Pancreatic Elastase, Fecal >500 (>200)
== END ==
PROVIDERS: Family Provider Internal Medicine; PCP Internal Medicine; Referring Provider Internal Medicine; Visit Provider Physician Assistant
DX: R19.7 Diarrhea, unspecified (principal)
CPT/HCPCS: 82656

== ENCOUNTER → 2020-02-14 11:12 | Outpatient (CLI) | payer MEDICARE, OTHER, SELFPAY ==
--- NOTE | 2020-02-14 | DI.CT.S_ITS ---
PROCEDURE: CT CHEST WO CON INDICATIONS: Solitary pulmonary nodule TECHNIQUE: Noncontrast 5 mm thick sections acquired from the pulmonary apices to the posterior costophrenic angles. 1 mm lung window, 5 mm thick coronal and sagittal and 7 mm axial MIP reformats were then acquired. For radiation dose reduction, the following was used: automated exposure control, adjustment of mA and/or kV according to patient size. COMPARISON: [facility], CT, CT ABDOMEN W CON, 08/21/2019, 11:06. [facility], CR, XR CHEST 2V, 05/08/2019, 16:39. FINDINGS: Image quality: Excellent. Scattered subsegmental atelectasis and/or scarring. No focal consolidation. No pleural effusions or pneumothorax. Airway thickening in keeping with nonspecific bronchitis and/or reactive airways disease. 6 mm left basilar pulmonary nodules unchanged since 08/21/19. Additional right superior segment right lower lobe nodule measures 6 mm. Mediastinum: Heart size is normal. No pericardial effusion. No mediastinal adenopathy by size criteria. Thoracic aorta and central pulmonary arteries are normal in size. Esophagus is normal in caliber. No hiatal hernia. Bones and chest wall: No suspicious bony lesions. No vertebral body compression fractures. No axillary or supraclavicular adenopathy by size criteria. Thyroid is grossly unremarkable Abdomen: Subcentimeter hepatic foci are statistically cysts or hemangiomas, although technically too small to characterize accurately and therefore nonspecific. IMPRESSION: No interval change in left basilar pulmonary nodule, which is encouraging, 6 08/21/19. However still indeterminate. Right lower lobe superior segment pulmonary nodule which is also indeterminate. Recommend follow-up in 6 months with noncontrast chest CT. Both findings could be evaluated at this time. Dictated by: Marvin Barnes M.D. on 02/14/2020 at 12:25 Approved by: Marvin Barnes M.D. on 02/14/2020 at 12:30
== END ==
PROVIDERS: Family Provider Internal Medicine; PCP Internal Medicine; Referring Provider Internal Medicine; Visit Provider Internal Medicine
DX: R91.8 Other nonspecific abnormal finding of lung field (principal)
CPT/HCPCS: 71250

== ENCOUNTER → 2020-04-18 18:12 | Outpatient (ROUT) | payer MEDICARE, OTHER, SELFPAY ==
[2020-04-18 18:23] LABS: Add Manual Diff / Slide Review NO; Basophils Absolute Auto 0 /uL (0-100); Basophils Percent Auto 0.5 % (0-2); Eosinophils Absolute Auto 100 /uL (0-450); Hematocrit 37.7 % (36-46); Hemoglobin 12.5 g/dL (12.0-16.0); Lymphocytes Absolute Auto 1700 /uL (1100-4500); Lymphocytes Percent Auto 27.1 % (25-40); Mean Corpuscular HGB Conc 33.2 % (30-36); Mean Corpuscular Hemoglobin 32.7 PG (26-34); Mean Corpuscular Volume 98.5 fL (80-100); Monocytes Absolute Auto 500 /uL (0-900); Monocytes Percent Auto 7.6 % (3-14); Neutrophils Absolute Auto 4000 /uL (1500-7000); Neutrophils Percent Auto 62.8 % (50-75); Platelet Count 217 X10^3/uL (150-400); Red Blood Cell Count 3.83 X10^6/uL (4.0-5.2); Red Cell Distribution Width 12.7 % (11.6-14.8); White Blood Cell Count 6.4 X10^3/uL (4.5-11.0)
[2020-04-18 18:38] LABS: Alanine Aminotransferase 22 IU/L (<35); Albumin Globulin Ratio 1.4 (1.0-2.8); Alkaline Phosphatase 100 U/L (38-126); Aspartate Aminotransferase 28 IU/L (14-36); BUN Creatinine Ratio 34.1 (6-22); Bilirubin Total 0.1 mg/dL (0.2-1.3); Blood Urea Nitrogen 28 mg/dL (7-17); Calcium 9.3 mg/dL (8.4-10.2); Carbon Dioxide 31 mmol/L (22-32); Chloride 104 mmol/L (98-107); Cholesterol 210 mg/dL (140-199); Estimated Glomerular Filt Rate > 60.0 mL/min (>60); Globulin 2.8 g/dL (1.7-4.1); Glucose 93 mg/dL (80-110); HDL Cholesterol 69 mg/dL (40-60); HEMOLYSIS < 15 (0-50); LDL Cholesterol Calculated 111 mg/dL (<100); Potassium 4.4 mmol/L (3.4-5.1); Sodium 140 mmol/L (137-145); Total Protein 6.8 g/dL (6.3-8.2); Triglycerides 150 mg/dL (35-150)
[2020-04-18 19:06] LABS: TSH w/ Reflex to FT4 2.07 uIU/mL (0.47-4.68)
[2020-04-24 19:45] LABS: Vitamin D 25 Hydroxy (D3) 34.2 ng/mL (30.0-100.0)
== END ==
PROVIDERS: Family Provider Internal Medicine; PCP Internal Medicine; Visit Provider Internal Medicine
DX: I70.0 Atherosclerosis of aorta (principal); E78.2 Mixed hyperlipidemia; E55.9 Vitamin D deficiency, unspecified
CPT/HCPCS: 80053; 80061; 82306; 84443; 85025

== ENCOUNTER → 2020-06-17 10:06 | Outpatient (CLI) | payer MEDICARE, OTHER, SELFPAY | PROVIDERS: Family Provider Internal Medicine; PCP Internal Medicine; Referring Provider Internal Medicine; Visit Provider Internal Medicine | DX: M85.851 Other specified disorders of bone density and structure, right thigh (principal); Z78.0 Asymptomatic menopausal state | CPT/HCPCS: 77080 ==

== ENCOUNTER → 2020-08-14 10:12 | Outpatient (CLI) | payer MEDICARE, OTHER, SELFPAY ==
--- NOTE | 2020-08-14 | DI.CT.S_ITS ---
PROCEDURE: CT CHEST WO CON INDICATIONS: Solitary pulmonary nodule TECHNIQUE: Noncontrast 2.0-2.5 mm thick sections acquired from the pulmonary apices to the posterior costophrenic angles. 7 mm thick axial MIP and 5 mm coronal and sagittal reformats were then acquired. A low radiation dose technique was utilized. COMPARISON: [facility], CT, CT ABDOMEN W CON, 08/21/2019, 11:06. [facility], CT, CT CHEST WO CON, 02/14/2020, 11:13. FINDINGS: Image quality: Diagnostic, given the low radiation dose technique. Lungs and pleura: At the lateral lower lungs there are stable pulmonary nodules, 1 at each lower lung, and these remain stable in size at 6 mm maximal dimension. The the upper nodule is located just below the karen level on the right, anterolateral right lower lobe, seen on series 3, image 178. The more inferior of the 2 nodules is on the left, and seen at the lateral aspect of the left lower lobe series 3, image 257. Mediastinum: Heart size is normal. No pericardial effusion. No mediastinal adenopathy by size criteria. Thoracic aorta and central pulmonary arteries are normal in size. Esophagus is normal in caliber. No hiatal hernia. Bones and chest wall: No suspicious bony lesions. No vertebral body compression fractures. No axillary or supraclavicular adenopathy by size criteria. Thyroid gland Is not well seen . Abdomen: Visualized upper abdomen solid organs and bowel loops appear normal in the absence of contrast. IMPRESSION: Stable appearing lung base lateral nodules, 6 mm each, and at this time a single additional follow-up noncontrast CT in 12 months from now would be recommended if the patient is a high risk patient. If the patient is a low risk patient follow-up noncontrast CT scanning in 12 months from now would be elective. This is based on the Fleischner society criteria for follow-up of solid pulmonary nodules. Note: The prior CT had raised a small degree of concern regarding a hypodensity at the lateral border of the right posterior hepatic segment. This is more clearly seen to represent a diaphragmatic muscle slip producing that appearance and requires no follow-up. Fleischner Society criteria for SOLID lung nodule followup. Nodule size (mm)Low-risk patientHigh-risk patient<6 (single or multiple)No routine followup.Optional CT at 12 months. 6-8 (single or multiple)CT at 6-12 months, then optional CT at 18-24 mo.CT at 6-12 months, then CT at 18-24 months. >8 (single)CT at 3 months, PET-CT, or biopsy. Same as for low-risk pts. >8 (multiple)CT at 3-6 months, then optional CT at 18-24 mo.CT at 3-6 months, then CT at 18-24 months. Fleischner Society criteria for SUB-SOLID lung nodule followup. Solitary pure ground-glass nodules<6 mm (ground glass or part solid)No followup needed. 6 mm or larger (ground glass)CT at 6-12 months to confirm persistence, then CT every 2 years until 5 years.6 mm or larger (part solid)CT at 3-6 months to confirm persistence, then annual CT until 5 years if unchanged and solid component remains <6 mm. Multiple sub-solid nodules<6 mmCT at 3-6 months, then CT consider at 2 & 4 years for high risk patients. [address] at 3-6 months. Subsequent management based on most suspicious lesions. Recommendations do not apply to lung cancer screening, patients with immunosuppression, or patients with known primary cancer. Dictated by: Mikey Poe M.D. on 08/14/2020 at 14:21 Approved by: Mikey Poe M.D. on 08/14/2020 at 14:31
== END ==
PROVIDERS: Family Provider Internal Medicine; PCP Internal Medicine; Referring Provider Internal Medicine; Visit Provider Internal Medicine
DX: R91.8 Other nonspecific abnormal finding of lung field (principal)
CPT/HCPCS: 71250

== ENCOUNTER → 2021-02-13 13:31 | Outpatient (CLI) | payer MEDICARE, OTHER, SELFPAY | PROVIDERS: Family Provider Internal Medicine; PCP Internal Medicine; Visit Provider Physician Assistant | DX: R30.0 Dysuria (principal); N89.8 Other specified noninflammatory disorders of vagina | CPT/HCPCS: 87086; 87210 ==

== ENCOUNTER → 2022-06-03 10:07 | Outpatient (CLI) | payer MEDICARE, OTHER, SELFPAY ==
[2022-06-03 11:32] LABS: Hematocrit 39.6 % (36-46); Hemoglobin 13.4 g/dL (12.0-16.0); Mean Corpuscular HGB Conc 33.7 % (30-36); Mean Corpuscular Hemoglobin 32.8 PG (26-34); Mean Corpuscular Volume 97.3 fL (80-100); Platelet Count 276 X10^3/uL (150-400); Red Blood Cell Count 4.07 X10^6/uL (4.0-5.2); Red Cell Distribution Width 13.3 % (11.6-14.8); White Blood Cell Count 6.1 X10^3/uL (4.5-11.0)
[2022-06-03 12:01] LABS: Alanine Aminotransferase 21 IU/L (<35); Albumin 4.3 g/dL (3.5-5.0); Albumin Globulin Ratio 1.3 (1.0-2.8); Alkaline Phosphatase 104 U/L (38-126); Aspartate Aminotransferase 28 IU/L (14-36); BUN Creatinine Ratio 24.2 (6-22); Bilirubin Total 0.3 mg/dL (0.2-1.3); Blood Urea Nitrogen 23 mg/dL (7-17); Calcium 9.2 mg/dL (8.4-10.2); Carbon Dioxide 29 mmol/L (22-32); Chloride 102 mmol/L (98-107); Cholesterol 253 mg/dL (140-199); Estimated Glomerular Filt Rate > 60 mL/min (>60); Globulin 3.3 g/dL (1.7-4.1); Glucose 85 mg/dL (80-110); HEMOLYSIS < 15 (0-50); Potassium 4.7 mmol/L (3.4-5.1); Sodium 137 mmol/L (137-145); Total Protein 7.6 g/dL (6.3-8.2); Triglycerides 73 mg/dL (35-150)
[2022-06-03 12:12] LABS: HDL Cholesterol 120 mg/dL (40-60); LDL Cholesterol Calculated 118 mg/dL (<100)
== END ==
PROVIDERS: Family Provider Internal Medicine; PCP Internal Medicine; Referring Provider Internal Medicine; Visit Provider Internal Medicine
DX: E78.2 Mixed hyperlipidemia (principal); G40.909 Epilepsy, unspecified, not intractable, without status epilepticus
CPT/HCPCS: 36415; 80053; 80061; 84443; 85027

== ENCOUNTER → 2022-11-23 11:47 | Outpatient (CLI) | payer MEDICARE, OTHER, SELFPAY ==
[2022-11-23 13:14] LABS: Hematocrit 36.9 % (36-46); Hemoglobin 12.4 g/dL (12.0-16.0); Mean Corpuscular HGB Conc 33.6 % (30-36); Mean Corpuscular Hemoglobin 33.4 PG (26-34); Mean Corpuscular Volume 99.3 fL (80-100); Platelet Count 315 X10^3/uL (150-400); Red Blood Cell Count 3.72 X10^6/uL (4.0-5.2); Red Cell Distribution Width 13.7 % (11.6-14.8); White Blood Cell Count 6.5 X10^3/uL (4.5-11.0)
[2022-11-23 13:43] LABS: HEMOLYSIS < 15 (0-50); Iron 103 ug/dL (37-170)
[2022-11-23 13:49] LABS: Alanine Aminotransferase 21 IU/L (<35); Albumin 4.2 g/dL (3.5-5.0); Albumin Globulin Ratio 1.4 (1.0-2.8); Alkaline Phosphatase 103 U/L (38-126); Aspartate Aminotransferase 23 IU/L (14-36); BUN Creatinine Ratio 26.1 (6-22); Bilirubin Total 0.1 mg/dL (0.2-1.3); Blood Urea Nitrogen 24 mg/dL (7-17); Calcium 9.5 mg/dL (8.4-10.2); Carbon Dioxide 26 mmol/L (22-32); Chloride 104 mmol/L (98-107); Cholesterol 259 mg/dL (140-199); Estimated Glomerular Filt Rate > 60 mL/min (>60); Globulin 2.9 g/dL (1.7-4.1); Glucose 80 mg/dL (80-110); HDL Cholesterol 77 mg/dL (40-60); HEMOLYSIS < 15 (0-50); LDL Cholesterol Calculated 139 mg/dL (<100); Potassium 4.8 mmol/L (3.4-5.1); Sodium 138 mmol/L (137-145); Total Protein 7.1 g/dL (6.3-8.2); Triglycerides 214 mg/dL (35-150)
[2022-11-23 13:54] LABS: Percent Iron Saturation 34 % (15-50); Total Iron Binding Capacity 304 ug/dL (265-497); Transferrin 236 mg/dL (206-381)
[2022-11-23 14:17] LABS: Ferritin 120 ng/mL (11-264)
== END ==
PROVIDERS: Family Provider Internal Medicine; PCP Internal Medicine; Referring Provider Internal Medicine; Visit Provider Internal Medicine
DX: D50.9 Iron deficiency anemia, unspecified (principal); E78.2 Mixed hyperlipidemia; G40.909 Epilepsy, unspecified, not intractable, without status epilepticus
CPT/HCPCS: 36415; 80053; 80061; 82728; 83540; 83550; 85027

== ENCOUNTER → 2023-04-16 13:59 | Outpatient (CLI) | payer MEDICARE, OTHER, SELFPAY ==
[2023-04-16 16:05] LABS: Cholesterol 270 mg/dL (140-199); HDL Cholesterol 103 mg/dL (40-60); LDL Cholesterol Calculated 146 mg/dL (<100); Triglycerides 107 mg/dL (35-150)
== END ==
PROVIDERS: Family Provider Internal Medicine; PCP Internal Medicine; Referring Provider Internal Medicine; Visit Provider Internal Medicine
DX: E78.2 Mixed hyperlipidemia (principal)
CPT/HCPCS: 36415; 80061

== ENCOUNTER → 2023-08-05 16:12 | Outpatient (CLI) | payer MEDICARE, OTHER, SELFPAY ==
[2023-08-05 18:01] LABS: Aspartate Aminotransferase 23 IU/L (14-36); BUN Creatinine Ratio 23.5 (6-22); Blood Urea Nitrogen 27 mg/dL (7-17); Calcium 9.5 mg/dL (8.4-10.2); Carbon Dioxide 29 mmol/L (22-32); Chloride 105 mmol/L (98-107); Cholesterol 246 mg/dL (140-199); Estimated Glomerular Filt Rate 49 mL/min (>60); Glucose 75 mg/dL (80-110); HDL Cholesterol 95 mg/dL (40-60); HEMOLYSIS < 15 (0-50); LDL Cholesterol Calculated 120 mg/dL (<100); Potassium 5.1 mmol/L (3.4-5.1); Sodium 138 mmol/L (137-145); Triglycerides 157 mg/dL (35-150)
== END ==
PROVIDERS: Family Provider Internal Medicine; PCP Internal Medicine; Referring Provider Internal Medicine; Visit Provider Internal Medicine
DX: E78.2 Mixed hyperlipidemia (principal)
CPT/HCPCS: 36415; 80048; 80061; 84450

== ENCOUNTER → 2023-11-25 10:51 | Outpatient (CLI) | payer MEDICARE, OTHER, SELFPAY ==
[2023-11-25 13:05] LABS: Aspartate Aminotransferase 22 IU/L (14-36); BUN Creatinine Ratio 24.4 (6-22); Blood Urea Nitrogen 21 mg/dL (7-17); Calcium 9.6 mg/dL (8.4-10.2); Carbon Dioxide 27 mmol/L (22-32); Chloride 106 mmol/L (98-107); Cholesterol 282 mg/dL (140-199); Estimated Glomerular Filt Rate > 60 mL/min (>60); Glucose 83 mg/dL (80-110); HDL Cholesterol 90 mg/dL (40-60); HEMOLYSIS < 15 (0-50); LDL Cholesterol Calculated 171 mg/dL (<100); Potassium 4.9 mmol/L (3.4-5.1); Sodium 140 mmol/L (137-145); Triglycerides 107 mg/dL (35-150)
== END ==
PROVIDERS: Family Provider Internal Medicine; PCP Internal Medicine; Referring Provider Internal Medicine; Visit Provider Internal Medicine
DX: E78.2 Mixed hyperlipidemia (principal); M85.80 Other specified disorders of bone density and structure, unspecified site
CPT/HCPCS: 36415; 80048; 80061; 84450

== ENCOUNTER → 2024-01-06 17:27 | Outpatient (CLI) | payer MEDICARE, OTHER, SELFPAY | PROVIDERS: Family Provider Internal Medicine; PCP Internal Medicine; Visit Provider Physician Assistant Medical | DX: R30.0 Dysuria (principal); R39.15 Urgency of urination; R35.0 Frequency of micturition | CPT/HCPCS: 87086 ==

== ENCOUNTER → 2024-02-21 12:59 | Outpatient (CLI) | payer MEDICARE, OTHER, SELFPAY ==
--- NOTE | 2024-02-21 13:05 | EKG_ITS ---
[address] [address] Test Date: 2024-02-21 Pat Name: Chante Villalba Department: [facility] Room: Gender: Female Associate Editor: NARCISO : 1945 Requested By: Order Number: [id number] Reading MD: Abdirahman Abarca Measurements Intervals Reasnor Rate: 62 P: -4 NC: 186 QRS: -26 QRSD: 70 T: 19 QT: 392 QTc: 397 Interpretive Statements Normal sinus rhythm Electronically Signed On 02-21-2024 18:44:19 PST by Abdirahman Abarca
== END ==
LOC: RESP 13:02
PROVIDERS: Family Provider Internal Medicine; PCP Internal Medicine; Referring Provider Podiatrist; Visit Provider Podiatrist
DX: Z01.818 Encounter for other preprocedural examination (principal)
CPT/HCPCS: 93005

== ENCOUNTER → 2024-03-13 09:19 | Outpatient (CLI) | payer MEDICARE, OTHER, SELFPAY ==
[2024-03-13 10:28] LABS: Cholesterol 267 mg/dL (140-199); HDL Cholesterol 88 mg/dL (40-60); LDL Cholesterol Calculated 155 mg/dL (<100); Triglycerides 120 mg/dL (35-150)
== END ==
PROVIDERS: Family Provider Internal Medicine; PCP Internal Medicine; Referring Provider Internal Medicine; Visit Provider Internal Medicine
DX: E78.2 Mixed hyperlipidemia (principal)
CPT/HCPCS: 36415; 80061

== ENCOUNTER 2024-03-31 08:44 | Day surgery (SDC) | payer MEDICARE, OTHER, SELFPAY ==
[2024-03-27 14:13] VITALS: BMI 25.8
[2024-03-31] VITALS (9 sets, daily range): BP systolic 116–146; BP diastolic 59–68; PULSE 60–87; RESP 12–16; TEMP 36.3–37.1; O2SAT 94–98; BMI 25.8
[2024-03-31] MEDS: LACTATED RINGERS 1,000 ML 42 ML IV ×2 (09:19→13:25)
[2024-03-31] MEDS: ACETAMINOPHEN 325 MG TABLET 975 MG PO (09:20)
--- NOTE | 2024-03-31 10:33 | PM.PREOP ---
Pre-operative Note Interval Note History & Physical reviewed/Exam performed by Physician: Yes Changes to H&P: No
[2024-03-31] MEDS: CLINDAMYCIN 600 MG/50 ML PIGGYBACK 50 MG IV (10:45)
[2024-03-31] MEDS: BUPIVACAINE 0.5% (PF) 30 ML VIAL INJ (10:46)
[2024-03-31] MEDS: LIDOCAINE 2% INJ SDV 5ML 5 ML INJ (10:46)
--- NOTE | 2024-03-31 11:03 | SUR.OPER ---
Supine on padded OR bed, head on pillow, arms secured on padded arm boards at <90 degrees abduction, legs uncrossed, safety belt at thigh, tape over blanket over lower left leg, right leg prepped into field
[2024-03-31] MEDS: BUPIVACAINE 0.5% (PF) 30 ML VIAL 5 ML INJ (12:30)
[2024-03-31] MEDS: ONDANSETRON 4 MG/2 ML INJ IV (13:03)
--- NOTE | 2024-03-31 13:09 | P.OP_ITS ---
Operative Date/Time/Diagnoses Date of procedure: 03/31/24 Time of procedure: 10:00 Pre-op diagnosis: Right hammertoes two, three Post-op diagnosis: same Procedure & Clinicians Procedure: Right second and third toes proximal and distal interphalangeal joint arthrodesis Same procedure as scheduled: Yes Indications: 79-year-old female with ongoing painful hammertoes to the right 2nd 3rd and 4th toes. We have had attempts at conservative measures which have failed to alleviate her pain and she wished to have surgical intervention at this time. We discussed in detail the options for her treatments have and secured once again today and that her choice would be to have the right 2nd and right 3rd hammertoe procedures and not have the right 4th toe procedure today. Consent is reviewed once again and no guarantees are given or implied. Consent is signed and there were no contraindications to the procedure at this time. Surgeon: Kayli Olivares Click Yes if Unassisted: Yes Anesthesia Type: General Operative Notes Closure Type: primary Specimen(s): none sent Prosthetic devices, grafts, tissues, transplants, or devices: [place] 2.0 cannulated headless screws (2) Estimated Blood Loss (mL): 20 Blood products transfused: none Tourniquet time (min): 56 Procedure in detail: The patient was brought to the operating room and placed on the operating table in the supine position. The tourniquet was placed about the right ankle, well padded, appropriately aligned. After induction of general anesthesia the right foot and ankle were prepped and draped in the usual aseptic manner. The tourniquet was inflated. Incision was made over the second toe distal and proximal interphalangeal joints dorsally. The incision was deepened through subcutaneous tissues being careful to identify and retract all vital neural and vascular structures. All bleeders were cauterized and ligated as necessary. A transection of the extensor tendon at the distal interphalangeal joint was performed. A saw was used to resect the base of the distal phalanx and the head of the intermediate phalanx. The same was performed to the proximal interphalangeal joint. The area was irrigated with copious amounts normal sterile saline. On loading the foot, she still had dorsal contracture tension at the second metatarsophalangeal joint. The incision was extended into this joint and a dorsal capsulotomy was perfomed. Next, at this level, an extensor tendon z-lengthening was performed. This allowed the toe to float into a straighter position. A guide wire was placed in the base of the intermediate phalanx, out through the toe tip, then retrograded back across the proximal phalanx. This was checked and appeared to be in good alignment and as well as on mini C-arm. A drill was used over the guide wire and the wire was measured for screw placement. The headless screw was placed across the distal and proximal interphalangeal joints, showed good compression and alignment on mini C-arm. The guide wire was removed. The area was irrigated with normal saline. Tourniquet was deflated, a prompt hyperemic response was seen to the foot. The extensor tendon was repaired using 4-0 Vicryl on each toe and subcutaneous closure using Vicryl as well. Nylon was used to close the skin. A lightly compressive dressing was placed on the foot and she was placed in stockinette and postsurgical shoe and was transferred to the PACU with vital signs stable. Complications: none Post-operative Condition: stable Disposition: PACU Plan for aftercare: Following a period of postoperative monitoring, the patient will be discharged to home on written and oral postoperative instructions including keeping the dressing dry and intact, no greater than 50% weight to the surgical foot, icing and elevating the foot when seated home. DVT prevention techniques have been reviewed. For the 1st postoperative visit the dressing will be changed and close to the fourth postoperative week we will likely take x-rays.
--- NOTE | 2024-03-31 13:53 | SUR.PHASEII ---
Patient continues to complain of nausea, but then states, it's not really nausea, but my head feels heavy. Received orders from Dr Jules for Reglan and Vistaril. Updated the . Patient sipping on gingerale and eating crackers.
--- NOTE | 2024-03-31 14:16 | SUR.PHASEII ---
Patient feeling better and ready to go home. Home with in stable condition.
== END 2024-03-31 14:17 | disposition home or self-care (01) ==
PROVIDERS: Family Provider Internal Medicine; PCP Internal Medicine; Referring Provider Podiatrist; Visit Provider Podiatrist
PROC: (CPT 28285; principal; 2024-03-31 10:15)
DX: M20.41 Other hammer toe(s) (acquired), right foot (principal)
CPT/HCPCS: 28285 ×2; C1713; J1100; J1885; J2405; J2704

== ENCOUNTER → 2024-06-20 15:07 | Outpatient (CLI) | payer MEDICARE, OTHER, SELFPAY ==
[2024-06-20 16:09] LABS: Aspartate Aminotransferase 27 IU/L (14-36); BUN Creatinine Ratio 25.3 (6-22); Blood Urea Nitrogen 23 mg/dL (7-17); Calcium 9.2 mg/dL (8.4-10.2); Carbon Dioxide 24 mmol/L (22-32); Chloride 107 mmol/L (98-107); Cholesterol 257 mg/dL (140-199); Estimated Glomerular Filt Rate > 60 mL/min (>60); Glucose 86 mg/dL (70-99); HDL Cholesterol 94 mg/dL (40-60); HEMOLYSIS < 15 (0-50); LDL Cholesterol Calculated 139 mg/dL (<100); Potassium 4.1 mmol/L (3.4-5.1); Sodium 138 mmol/L (137-145); Triglycerides 120 mg/dL (35-150)
[2024-06-20 16:36] LABS: TSH w/ Reflex to FT4 1.43 uIU/mL (0.47-4.68)
== END ==
PROVIDERS: Family Provider Internal Medicine; PCP Internal Medicine; Referring Provider Internal Medicine; Visit Provider Internal Medicine
DX: E78.2 Mixed hyperlipidemia (principal)
CPT/HCPCS: 36415; 80048; 80061; 84443; 84450

== ENCOUNTER 2024-08-23 18:49 | Emergency (ER) | payer MEDICARE, OTHER, SELFPAY ==
[2024-08-23 18:53] VITALS: BP 142/65; PULSE 71; RESP 16; TEMP 36.6; O2SAT 97; BMI 25.8
--- NOTE | 2024-08-23 18:58 | DI.RAD.S_ITS ---
PROCEDURE: XR HAND LT MIN 3V INDICATIONS: fall TECHNIQUE: 3 views of the hand(s) acquired. COMPARISON: [facility], , HAND 3V LEFT, 08/26/2014, 13:19. FINDINGS: Bones: No fractures or dislocations. Degenerative changes throughout the hand, severe involving the 1st CMC joint. Carpal bones are normally aligned. No suspicious bony lesions. Soft tissues: No suspicious soft tissue calcifications. IMPRESSION: No acute osseous abnormality. If pain persists with conservative management, consider repeat x-ray in 10-14 days or cross-sectional imaging. Dictated by: Edis Ocampo M.D. on 08/23/2024 at 19:59 Approved by: Edis Ocampo M.D. on 08/23/2024 at 19:59
--- NOTE | 2024-08-23 18:59 | DI.RAD.S_ITS ---
PROCEDURE: XR KNEE RT 3V INDICATIONS: fall TECHNIQUE: 3 views of the knee were acquired. COMPARISON: None. FINDINGS: Bones: No fractures or dislocations. Right knee arthroplasty hardware appears intact without surrounding fracture or lucency. No suspicious bony lesions. Soft tissues: Small joint effusion. No suspicious soft tissue calcifications. IMPRESSION: Right knee arthroplasty without evidence of complication. No acute osseous abnormalities are identified. Dictated by: Edis Ocampo M.D. on 08/23/2024 at 19:59 Approved by: Edis Ocampo M.D. on 08/23/2024 at 20:00
--- NOTE | 2024-08-23 21:03 | ED.FALL ---
HPI - Fall General Chief Complaint: Fall Stated Complaint: fell landed on left hand and knee Time Seen by Provider: 08/23/24 20:41 History of Present Illness HPI Narrative: 79-year-old female was working in her garden at home, stepped into her bucket of tools, had a fall, onto her right knee with right knee pain and small scrape, also left hand pain, unclear if she hyperextended her fingers in her wrist, or if she flexed. Denied hitting her head, no headache, no neck pain. Denies pain to her upper mid lower back. Denies pain to her chest and trunk, denies pain to her abdomen. Does not seem to have pain to either hip, nor lower extremity left side, upper extremity right side. Related Data Home Medications ?Medication ?Instructions ?Recorded ?Confirmed ascorbic acid (vitamin C) 1,000 mg 1,000 mg PO DAILY 06/03/22 06/20/24 tablet calcium carbonate 1,500 mg PO DAILY 06/03/22 06/20/24 cholecalciferol (vitamin D3) 25 25 mcg PO DAILY 06/03/22 06/20/24 mcg (1,000 unit) capsule d-mannose 500 mg capsule 500 mg PO DAILY 06/03/22 06/20/24 phytonadione (vitamin K1) 100 mcg 100 mcg PO DAILY 06/03/22 06/20/24 tablet aspirin 81 mg tablet,delayed 81 mg PO DAILY 10/26/22 06/20/24 release cholestyramine (with sugar) 4 gram 1 ea PO DAILY 06/20/24 06/20/24 powder for susp in a packet Previous Rx's ?Medication ?Instructions ?Recorded triamcinolone acetonide 0.1 % 1 applic topical BID PRN rash #30 08/06/22 topical cream grams meloxicam 15 mg tablet 15 mg PO DAILY #90 tabs 05/01/24 phenobarbital 97.2 mg tablet 97.2 mg PO .COMPLEX #145 tabs 05/01/24 pravastatin 10 mg tablet 10 mg PO BEDTIME #90 tabs 06/13/24 estradiol 0.01% (0.1 mg/gram) 1 g vaginal 2XW #42.5 grams 06/20/24 vaginal cream gabapentin 300 mg capsule 300 mg PO BEDTIME PRN hot flashes 06/20/24 #30 caps temazepam 7.5 mg capsule 7.5 mg PO BEDTIME PRN sleep #30 07/11/24 caps pantoprazole 40 mg tablet,delayed 40 mg PO DAILY #90 tabs 08/10/24 release Allergies Allergy/AdvReac Type Severity Reaction Status Date / Time amoxicillin (AMOXICILLIN) Allergy Mild Rash Verified 06/20/24 14:17 oxycodone AdvReac Severe Sob Verified 06/20/24 14:17 rosuvastatin AdvReac Intermediate leg cramps Verified 06/20/24 14:17 Patient History Medical History (Updated 08/23/24 @ 21:08 by Trino David MD) Postmenopausal bleeding Pulmonary nodule Urge incontinence Irritable bowel syndrome with diarrhea Dry mouth Osteopenia Cervical spine disease Vertigo 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 Mother Stroke Sister Pulmonary disease Grandfather History of heart disease Social History household members: spouse Exam Narrative Exam Narrative: GENERAL: Well-developed patient, in mild distress. HEAD: Atraumatic. Normocephalic. EYES: Pupils equal round and reactive. Extraocular motions intact. No scleral icterus. No injection or drainage. ENT: Nose without bleeding, purulent drainage. Throat without erythema, tonsillar hypertrophy or exudate. Airway patent. NECK: Trachea midline. Non tender CARDIOVASCULAR: Regular rate and rhythm without murmurs, gallops, or rubs. RESPIRATORY: Clear to auscultation. Breath sounds equal bilaterally. No wheezes, rales, or rhonchi. GASTROINTESTINAL: Abdomen soft, non-tender, nondistended. EXTREMITIES: Mild tenderness right hand fingers with no gross deformity or edema. All abrasion right knee with well-healed knee replacement scars, no crepitance, no significant joint line tenderness. No suturable lacerations. No gross effusion. BACK: Nontender without deformity or crepitance. No flank tenderness. NEURO: AOx3. Motor functions grossly nonfocal SKIN: No rash or erythema of visible areas Initial Vital Signs Initial Vital Signs: Vital Signs Temperature 97.8 F 08/23/24 18:53 Pulse Rate 71 08/23/24 18:53 Respiratory Rate 16 08/23/24 18:53 Blood Pressure 142/65 H 08/23/24 18:53 Pulse Oximetry 97 08/23/24 18:53 Oxygen Delivery Method Room Air 08/23/24 18:53 Course Orders Ordered: ED Orders 08/23/24 18:58 XR hand LT min 3V Stat 08/23/24 18:59 XR knee RT 3V Stat Discontinued Medications Bacitracin (Bacitracin Oint 0.9 Gm Pckt) 1 applic TOP NOW ONE Stop: 08/23/24 21:09 Last Admin: 08/23/24 21:20 Dose: 1 applic Documented By: CATIE Vital Signs Vital signs: Vital Signs - 8 hr 08/23/24 21:12 Pulse Rate 67 Respiratory Rate 18 Blood Pressure 141/62 H Pulse Oximetry 98 MDM - Fall Imaging Data Extremity x-ray #1: Radiologist's Impression: [address] [address] XRay Report Signed Patient: Chante Villalba MR#: [id number] : 1945 Acct:[id number] Age/Sex: 79 / F Date of Service: 08/23/24 Loc: ED Accession Number: [id number] Procedure: XR hand LT min 3V Ordering Provider: Trino David MD PROCEDURE: XR HAND LT MIN 3V INDICATIONS: fall TECHNIQUE: 3 views of the hand(s) acquired. COMPARISON: [facility], , HAND 3V LEFT, 08/26/2014, 13:19. FINDINGS: Bones: No fractures or dislocations. Degenerative changes throughout the hand, severe involving the 1st CMC joint. Carpal bones are normally aligned. No suspicious bony lesions. Soft tissues: No suspicious soft tissue calcifications. IMPRESSION: No acute osseous abnormality. If pain persists with conservative management, consider repeat x-ray in 10-14 days or cross-sectional imaging. Dictated by: Edis Ocampo M.D. on 08/23/2024 at 19:59 Approved by: Edis Ocampo M.D. on 08/23/2024 at 19:59 Extremity x-ray #2: Radiologist's Impression: [address] [address] XRay Report Signed Patient: Chante Villalba MR#: [id number] : 1945 Acct:[id number] Age/Sex: 79 / F Date of Service: 08/23/24 Loc: ED Accession Number: [id number] Procedure: XR knee RT 3V Ordering Provider: Trino David MD PROCEDURE: XR KNEE RT 3V INDICATIONS: fall TECHNIQUE: 3 views of the knee were acquired. COMPARISON: None. FINDINGS: Bones: No fractures or dislocations. Right knee arthroplasty hardware appears intact without surrounding fracture or lucency. No suspicious bony lesions. Soft tissues: Small joint effusion. No suspicious soft tissue calcifications. IMPRESSION: Right knee arthroplasty without evidence of complication. No acute osseous abnormalities are identified. Dictated by: Edis Ocampo M.D. on 08/23/2024 at 19:59 Approved by: Edis Ocampo M.D. on 08/23/2024 at 20:00 [facility] Narrative Medical decision making narrative: 79-year-old female had ground level fall in her garden earlier this afternoon, with left hand pain and right knee pain. Small abrasion to right knee. Screening x-rays to the right knee showed no fracture changes. Left hand x-rays without obvious fractures. Antibiotic appointment to right knee abrasion. Tetanus up-to-date. Advised use of aapf-kdr-clrssll Tylenol and or Motrin as needed for pain control. Recheck if symptoms not improving in the next few days. Return precautions discussed. Discharged home. Discharge Plan Departure Patient Disposition: Home Clinical Impression: Contusion of left hand, Contusion of right knee, Abrasion of right knee Activity Restrictions/Additional Instructions: Ground level fall in the garden earlier today, with right knee and left hand pain. Screening x-rays of the left hand showed no obvious fracture dislocation changes. Screening x-ray of the right knee showed old post surgical knee replacement changes, without complications, without obvious injuries. Small abrasion to the right knee, dressed with antibiotic ointment. He thought that your tetanus was up-to-date given within the last 5 years. You have been able to walk around on the extremity. Consider use of [id number]-lyg-oitfphm pain medication Tylenol and or Motrin as needed for pain control. Continue ienr-htd-etcyidd topical antibiotic to your skin abrasion area. Recheck with your regular provider if persisting pain in the next few days, not improving. Return to this/nearest emergency department for any change worsening symptoms or any concerns prior. Prescriptions: No Action phenobarbital 97.2 mg tablet 97.2 mg PO .COMPLEX Qty: 145 3RF Rx Instructions: Take one and one half tablets by mouth daily. May take additional 1/2 tablet 5 times weekly if needed. meloxicam 15 mg tablet 15 mg PO DAILY Qty: 90 3RF pravastatin 10 mg tablet 10 mg PO BEDTIME Qty: 90 3RF temazepam 7.5 mg capsule 7.5 mg PO BEDTIME PRN (Reason: sleep) Qty: 30 1RF pantoprazole 40 mg tablet,delayed release (DR/EC) 40 mg PO DAILY Qty: 90 3RF ascorbic acid (vitamin C) 1,000 mg tablet 1,000 mg PO DAILY cholecalciferol (vitamin D3) 25 mcg (1,000 unit) capsule 25 mcg PO DAILY phytonadione (vitamin K1) 100 mcg tablet 100 mcg PO DAILY calcium carbonate 500 mg calcium (1,250 mg) tablet 1,500 mg PO DAILY d-mannose 500 mg capsule 500 mg PO DAILY triamcinolone acetonide 0.1 % cream 1 applic topical BID PRN (Reason: rash) Qty: 30 0RF Rx Instructions: do not use for more than 2 weeks aspirin 81 mg tablet,delayed release (DR/EC) 81 mg PO DAILY cholestyramine (with sugar) 4 gram powder in packet 1 ea PO DAILY gabapentin 300 mg capsule 300 mg PO BEDTIME PRN (Reason: hot flashes) Qty: 30 5RF estradiol 0.01 % (0.1 mg/gram) cream 1 g vaginal 2XW Qty: 42.5 3RF Referrals: Palmer Meade MD [Primary Care Provider, Internal Medicine] Stand Alone Forms: Patient Portal/API
[2024-08-23 21:12] VITALS: BP 141/62; PULSE 67; RESP 18; O2SAT 98
[2024-08-23] MEDS: BACITRACIN OINT 0.9 GM PCKT 1 APPLIC TOP (21:20)
== END 2024-08-23 21:25 | disposition home or self-care (01) ==
PROVIDERS: Emergency Provider Emergency Medicine; Family Provider Internal Medicine; PCP Internal Medicine
DX: S80.211A Abrasion, right knee, initial encounter (principal); S60.222A Contusion of left hand, initial encounter; W18.30XA Fall on same level, unspecified, initial encounter
CPT/HCPCS: 73130; 73562; 99282; 99283

== ENCOUNTER → 2024-10-04 12:30 | Outpatient (CLI) | payer MEDICARE, OTHER, SELFPAY | PROVIDERS: Family Provider Internal Medicine; PCP Internal Medicine; Visit Provider Obstetrics & Gynecology | DX: N95.0 Postmenopausal bleeding (principal) | CPT/HCPCS: 81002; 87086 ==

== ENCOUNTER 2024-11-02 12:16 | Day surgery (SDC) | payer MEDICARE, OTHER, SELFPAY ==
[2024-10-25 14:32] VITALS: BMI 25.7
[2024-11-02] VITALS (9 sets, daily range): BP systolic 137–167; BP diastolic 63–103; PULSE 57–76; RESP 8–25; TEMP 36.3–36.6; O2SAT 94–100; BMI 25.7
--- NOTE | 2024-11-02 | PATH_ITS ---
[facility] Accession Number: [id number] No. of containers..03 Tissue . 01 Material submitted: . PART A: endometrium - ENDOMETRIAL POLYP PART B: endocervix - ENDOCERVICAL CURETTAGE PART C: endometrium - ENDOMETRIAL CURETTAGE . 01 Diagnosis: A. ENDOMETRIAL POLYP, BIOPSY: Fragments of benign endometrial polyp. Associated inactive endometrium with cystic changes. Negative for endometrioid intraepithelial neoplasia or malignancy. . B. ENDOCERVIX, CURETTAGE: Fragments of benign endometrial-type polyp. Background scant benign ecto/endocervical epithelium also present. Negative for dysplasia or malignancy. . C. ENDOMETRIUM, CURETTAGE: Benign ecto/endocervical tissue and few strips of benign, inactive endometrium, consistent with atrophy. Negative for endometrioid intraepithelial neoplasia or malignancy. [facility] 11/15/2024 1525 Local . 01 Electronically signed: . Abbi Gonzalez MD, Pathologist NPI- [id number] . 01 Gross description: . A. Received in formalin with two identifiers and endometrial polyp, are multiple james to brown soft tissue fragments aggregating to 3.4 x 3.0 x 1.6 cm. The largest fragments are sectioned, and the specimen is submitted in cassettes A1-A3. B. Received in formalin with two identifiers and endocervical curettage, are multiple james soft tissue fragments admixed with hemorrhagic material received in a large piece of Telfa paper aggregating to 1.2 x 0.7 x 0.1 cm. Filtered and submitted entirely in cassette B1. C. Received in formalin with two identifiers and endometrial curettage, are multiple minute james to brown soft tissue fragments admixed with mucohemorrhagic material received on a large fragment of friable Telfa paper aggregating to 1.0 x 0.7 x 0.1 cm. Filtered and submitted entirely in cassette C1. ([id number]) /ARABELLA 11/12/20241 Local . 01 Pathologist provided ICD-10: N84.0, N95.0 . 01 CPT . 882685, 189385, 230786 Specimen Comment: A courtesy copy of this report has been sent to [phone] Performed at: [address] [facility] [address], [place], [place] [id number] MD Héctor Anton MD Phone: [phone]
[2024-11-02] MEDS: LACTATED RINGERS 1,000 ML 42 ML IV (13:11)
--- NOTE | 2024-11-02 14:21 | PM.PREOP ---
Pre-operative Note COVID-19 COVID-19 status: Not tested Interval Note History & Physical reviewed/Exam performed by Physician: Yes Changes to H&P: No
--- NOTE | 2024-11-02 14:52 | SUR.OPER ---
Lithotomy on padded OR bed, head on pillow, arms secured on padded arm boards at <90 degrees abduction. Legs secured in padded yellow fins stirrups.
--- NOTE | 2024-11-02 15:04 | PM.GYNOP.1 ---
Operative Date/Time/Diagnoses Date of procedure: 11/02/24 Time of procedure: 14:10 Pre-op diagnosis: Postmenopausal bleeding Thickened endometrial stripe Post-op diagnosis: other (Same as above, endometrial polyp) Procedure & Clinicians Procedure: Procedures Operation Date: 11/02/24 13:45 Actual Procedure Side Surgeon p Hysteroscopy with POLYPECTOMY, Dilation and curettage of uterus Ranjith Jean MD Indications: Chante is a menopausal 79-year-old who an episode of heavy vaginal bleeding when March 2024. At that time she was told to stop estrogen/progestin therapy and ultrasound performed in April 2024 showed endometrial thickening with combined thickness of 16 mm. A April endometrial biopsy however showed no abnormalities and was reassured that no additional evaluation/treatment should be necessary. She did however want to have further evaluation by serial ultrasound due to her concerns of possible occult abnormalities with the in the endometrial cavity and a follow-up ultrasound performed in June 2024 at [facility] showed the uterus to be anteverted with normal size measuring 6.5 x 2.8 x 2.4 cm. The myometrium is described as heterogenous. The endometrium measures 13 mm in combined thickness with microcystic change. The right ovary measures 1.8 by 1.1 x 1.4 cm with a volume estimated at 1.4 cm. The left ovary was not visualized and there was no other adnexal masses noted. No pathologic for your abdominal fluid was noted. Despite this finding the patient is concerned about persistent thickening of the endometrial stripe and about 2 weeks ago had an episode of spotting PV. She presented for further evaluation and possible recommendation for further evaluation. We had an extensive discussion regarding potential causes for endometrial thickening in the postmenopausal female associated with postmenopausal bleeding. Although the patient has had an in office endometrial biopsy performed and reportedly negative for any atypia, hyperplasia, or neoplasia, she remains very concerned about the endometrial thickening as well as the 2nd episode of bleeding. During our discussion, she was assured that it is unlikely that there is significant abnormality within the endometrial cavity but the endometrial sampling performed is not 100% accurate and there is a potential that a small neoplastic process could be missed during endometrial sampling. Accordingly the patient would like to move forward with hysteroscopic evaluation of the endometrial cavity with biopsy of focal abnormalities along with dilation and curettage of the uterine. She presents today for her scheduled surgery. Surgeon: Ranjith Jean Anesthesia Type: General Operative Notes Findings: There is a large endometrial polyp arising in the uppermost part of the endometrial cavity. It has a rather narrow base but appears quite vascular particularly at its distal portion. No other localized abnormalities were noted within the endometrial cavity. Closure Type: not applicable Specimen(s): endometrial curettings, endometrial polyp and other (Endocervical curettings) Applied: none Estimated blood loss (mL): 10 Blood products transfused: none Procedure in detail: With the patient under general LMA in the modified dorsal lithotomy position, the perineum, vagina, and lower abdomen were prepped and draped in the usual fashion for hysteroscopy with endometrial ablation. A pre-surgical safety time-out was then taken in accordance with [facility] Main OR protocols. A bivalve speculum was inserted in the vagina and the cervix visualized. The anterior lip of the cervix was grasped with a single-tooth tenaculum and the endocervical canal was then dilated to 6 mm diameter. Hysteroscope was placed through the endocervical canal into the endometrial cavity and the cavity was visualized with the findings as noted above. A Jorge A stone forceps was introduced through the endocervical canal into the endometrial cavity where large fragments of the polyp were removed and submitted as a separate pathologic specimen. Repeat hysteroscopy showed that all elements of the polyp had been removed. Both tubal ostia were visualized. The hysteroscope was then withdrawn and a fractional dilation and curettage was accomplished with separate pathologic specimen submitted for the endometrial and endocervical curettings. The tenaculum was then removed from the anterior lip of the cervix and no bleeding was encountered. The speculum was then removed from the vagina and the patient awakened from anesthesia. She was then transferred to the PACU for a period of observation and recovery having tolerated the procedure well. Complications: none Post-operative Condition: stable Disposition: PACU Plan for aftercare: Routine post-op care.
[2024-11-02] MEDS: ACETAMINOPHEN 325 MG TABLET 975 MG PO (15:30)
== END 2024-11-02 16:29 | disposition home or self-care (01) ==
PROVIDERS: Family Provider Internal Medicine; PCP Internal Medicine; Referring Provider Obstetrics & Gynecology; Visit Provider Obstetrics & Gynecology
PROC: 0UDB8ZZ Extraction of Endometrium, Via Natural or Artificial Opening Endoscopic (ICD-10-PCS; CPT 58558; principal; 2024-11-02 13:45)
DX: N95.0 Postmenopausal bleeding (principal); N84.0 Polyp of corpus uteri; N84.1 Polyp of cervix uteri
CPT/HCPCS: 58558; J1100; J2405; J2704; J3010

== ENCOUNTER → 2024-12-20 14:38 | Outpatient (CLI) | payer MEDICARE, OTHER, SELFPAY ==
[2024-12-20 17:44] LABS: Blood Urea Nitrogen 24 mg/dL (7-17); Calcium 9.5 mg/dL (8.4-10.2); Carbon Dioxide 27 mmol/L (22-32); Chloride 104 mmol/L (98-107); Cholesterol 250 mg/dL (140-199); Estimated Glomerular Filt Rate > 60 mL/min (>60); Glucose 87 mg/dL (70-99); HDL Cholesterol 99 mg/dL (40-60); HEMOLYSIS < 15 (0-50); Potassium 4.0 mmol/L (3.4-5.1); Sodium 138 mmol/L (137-145); Triglycerides 87 mg/dL (35-150)
== END ==
LOC: LAB 14:40
PROVIDERS: PCP Internal Medicine; Referring Provider Internal Medicine; Visit Provider Internal Medicine
DX: E78.2 Mixed hyperlipidemia (principal)
CPT/HCPCS: 36415; 80048; 80061; 84450

== ENCOUNTER → 2025-01-08 09:09 | Outpatient (CLI) | payer MEDICARE, OTHER, SELFPAY ==
--- NOTE | 2025-01-08 09:11 | DI.RAD.S_ITS ---
PROCEDURE: XR HAND RT MIN 3V
--- NOTE | 2025-01-08 09:11 | DI.RAD.S_ITS ---
PROCEDURE: XR HAND LT MIN 3V
[2025-01-08 10:12] LABS: Hematocrit 40.2 % (36-46); Hemoglobin 13.4 g/dL (12.0-16.0); Mean Corpuscular HGB Conc 33.3 % (30-36); Mean Corpuscular Hemoglobin 32.3 PG (26-34); Mean Corpuscular Volume 97.0 fL (80-100); Platelet Count 258 X10^3/uL (150-400)
== END ==
PROVIDERS: PCP Internal Medicine; Referring Provider Internal Medicine; Visit Provider Internal Medicine
DX: M06.9 Rheumatoid arthritis, unspecified (principal)
CPT/HCPCS: 36415; 73130; 85027; 85651; 86140; 86200; 86430